=== PATIENT | male | born 1965 | race Caucasian/White ===

== ENCOUNTER 2023-01-30 00:07 | Emergency (ER) | payer MEDICAID ==
[~2023-01-30] VITALS: Ht 172.7 cm; Wt 127.0 kg
[2023-01-30 00:37] VITALS: O2SAT 98
[2023-01-30] MEDS ORDERED: IBUP-2029 MT (04:26)
[2023-01-30] MEDS ORDERED: CEPH500C2 MT (04:26)
[2023-01-30 04:35] VITALS: BP 135/81; PULSE 81; RESP 16; TEMP 98
== END 2023-01-30 04:35 | disposition home or self-care (01) ==
LOC: ER 00:07
DX: S61.011A Laceration without foreign body of right thumb without damage to nail, initial encounter (principal); I10 Essential (primary) hypertension; Y04.0XXA Assault by unarmed brawl or fight, initial encounter; Y93.89 Activity, other specified; Y92.89 Other specified places as the place of occurrence of the external cause; Y99.8 Other external cause status
CPT/HCPCS: 12001; 73090; 73110; 73130; 99284